=== PATIENT | male | born 1975 | race Caucasian/White ===

== ENCOUNTER 2018-10-15 12:56 | Emergency (ER) | payer BC ==
[~2018-10-15] VITALS: Ht 182.9 cm; Wt 81.7 kg
[~2018-10-15 12:56] MED LIST: AMOXICILLIN 50500 MG PO; AUGMENTIN 875-1 EACH PO; AVELOX400 MG PO; CEPHALEXIN 500500 M1 PO; CIPROFLOXACIN500 M1 PO; DOXYCYCLINE 10100 MG PO; ERYTHROMYCIN E3.5 G2 OPHTHALMIC; LISINOPRIL10 MG PO; NASONEX17 GM NASAL; NORCO 5-325 TA1 EAC1 PO; NORCO 5-325 TA1 EACH PO; PERCOCET 5-3251 EACH PO; POTASSIUM20 PO; PREVACID30 M1 PO; PREVACID30 MG PO; ULTRAM 50MG TAB50 MG PO
[2018-10-15] MEDS ORDERED: TRAMADOL 50 MG50 MG PO (13:19)
[2018-10-15] MEDS ORDERED: NAPROSYN500 MG PO (13:19)
[2018-10-15] MEDS ORDERED: KEFLEX500 M1 PO (14:02)
[2018-10-15 14:29] VITALS: BP 136/63
== END 2018-10-15 14:10 | disposition home or self-care (01) ==
LOC: M.ERS 12:56
DX: S61.213A Laceration without foreign body of left middle finger without damage to nail, initial encounter (principal); K21.9 Gastro-esophageal reflux disease without esophagitis; Z88.5 Allergy status to narcotic agent; W26.8XXA Contact with other sharp object(s), not elsewhere classified, initial encounter; Y93.89 Activity, other specified; Y92.89 Other specified places as the place of occurrence of the external cause; Y99.8 Other external cause status

== ENCOUNTER → 2021-06-19 | Outpatient (CLI) | payer BC ==
[~2021-06-19] MED LIST changes: +KEFLEX500 M1 PO; +NAPROSYN500 MG PO; +TRAMADOL 50 MG50 MG PO
== END ==
LOC: M.ULTRA 16:30
PROVIDERS: ATTEND Nurse Practitioner Family
DX: R10.31 Right lower quadrant pain (principal)